=== PATIENT | female | born 1945 | race Caucasian/White ===

== ENCOUNTER 2017-05-28 05:28 | Day surgery (SDC) | payer MEDICARE, OTHER ==
[2017-05-27 11:53] LABS: HEMATOCRIT 42.5 % (36.0-48.0); HEMOGLOBIN 14.6 g/dL (12-16); MCH 27.8 pg (26.0-34.0); MCHC 34.4 g/dL (31.0-37.0); MCV 80.8 fL (80.0-100.0); MEAN PLATELET VOLUME 9.7 fL (7.4-10.4); RBC 5.26 10x6/uL (4.00-5.40); RDW 14.6 % (11.5-14.5)
[~2017-05-28] VITALS: Ht 160 cm; Wt 58.5 kg
--- NOTE | ~2017-05-28 | OP ---
PATIENT NAME: RAJIV BENJAMIN MEDICAL RECORD: [id number] :45 LOCATION:D.OPS ADMISSION DATE: SURGEON: VAN ORLANDO DPM DATE OF OPERATION: 05/28/2017 PREOPERATIVE DIAGNOSES: 1. Enlarged bone, right fourth interspace. 2. HAV, right foot. POSTOPERATIVE DIAGNOSES: 1. Enlarged bone, right fourth interspace. 2. HAV, right foot. PROCEDURES: 1. Right fifth arthroplasty. 2. Right fourth partial met head resection. 3. Right fourth partial base of the proximal phalanx resection. 4. Right Wero bunionectomy. 5. Right Michael. ANESTHESIA: Preoperative popliteal block per the anesthesia department as well as general anesthesia intraoperatively. HEMOSTASIS: Right thigh tourniquet at 350 mmHg. PREOPERATIVE DETAILS: The patient was taken to the OR and placed on the operating table in a supine position. This was followed by induction of general anesthesia. The right extremity was then prepped and draped in the usual aseptic technique followed by exsanguination and inflation of tourniquet. PROCEDURE NUMBER 1: Right fifth arthroplasty. A 15-blade was used to create a linear incision 1 cm over the dorsal aspect of the right fifth PIPJ. The incision was deepened down through subcutaneous tissue to the extensor longus tendon, which was transected and the head of the proximal phalanx was delivered. A bone cutter was used to resect the head of the proximal phalanx. A rongeur was used to smooth all corners. Wound was flushed. The extensor tendon was repaired with 4-0 Rapide. The skin was closed with 4-0 Rapide in a subcuticular technique followed by Dermabond. PROCEDURE NUMBER 2: Right fourth partial met head resection. A 15-blade was used to create a linear incision over the dorsal aspect of the right fourth MPJ. The incision was deepened down through subcutaneous tissue to the joint capsule. A linear capsulotomy was performed and the head of the fourth metatarsal was delivered. A sagittal saw was used to resect the lateral 2 or 3 mm of the metatarsal head. PROCEDURE NUMBER 3: Right fourth partial base proximal phalanx resection. The incision as described in #2 was lengthened on top of the base of the proximal phalanx and the sagittal saw was used to resect the lateral 2-3 mm of the base of the proximal phalanx. The wound was flushed. The capsule was repaired with 2-0 Vicryl with horizontal mattress technique. The subcutaneous tissue was reapproximated with 4-0 Rapide and the skin was closed with 4-0 Rapide in a subcuticular technique followed by Dermabond. PROCEDURE NUMBER 4: Right Wero bunionectomy. A 15-blade was used to create a OPERATIVE REPORT [id number] RAJIV BENJAMIN 5 cm linear incision over the dorsal aspect of the right first MPJ. The incision was deepened down through subcutaneous tissue to the first MPJ where an inverted L capsulotomy was performed. The medial capsular flap was reflected and the head of the first metatarsal was delivered. A sagittal saw was used to resect the medial eminence. Attention was directed to the first interspace where a lateral release was performed. Attention was then redirected to the medial aspect of the head of the first metatarsal where a sagittal saw was used to create a V-osteotomy through and through. The capital fragment was translocated laterally and fixated with a 0.062 inch K-wire. The medial redundant shelf was resected and the pin was cut. PROCEDURE NUMBER 5: Right Michael. The incision as described in #4 was lengthened to the middle of the proximal phalanx of the hallux. The capsule was reflected exposing the dorsal aspect of the base of the hallux as well as the medial aspect. A sagittal saw was then used to create a medial based wedge osteotomy closing down the wedge after the bone was removed to decrease the PASA angle. At this time, a 3.5 cannulated screw was placed for sift fixation under fluoroscopy. Excellent rigid internal fixation was noted as well as alignment. The wound was flushed. The joint capsule was then repaired with 2-0 Vicryl, the subcutaneous tissue with 4-0 Rapide, and the skin was closed with 4-0 Rapide in a subcuticular technique followed by Dermabond. Adaptic, 4 x 4 and Conform were used to dress all the wounds followed by Mickey. Tourniquet was deflated. POSTOPERATIVE DETAILS: The patient tolerated the procedures well and left the OR with vital signs stable and vascular status at preop levels. The patient was transported to recovery per anesthesia in stable condition. TRANSINT:[id number] Voice Confirmation ID: [id number] DOCUMENT ID: [id number] VAN ORLANDO DPM at 0905 CC: [id number] DICTATION DATE: 05/28/17829 [employer] W[employer] BACK TENDER: 05/28/17 1055 [facility] 05/28/17 [place] [id number] [facility] [place] [id number]
[~2017-05-28 05:28] MED LIST: ALTACE2.5 MG PO; CRESTOR10 MG PO; JANUMET 50-5001 TAB PO
[2017-05-28 06:13] VITALS: BP 139/78; Ht 160 cm; Wt 58.5 kg
== END 2017-05-28 10:30 | disposition home or self-care (01) ==
LOC: D.OPS 05:28 → D.PAN 07:00 → D.OPS 07:00
PROVIDERS: Anesthesiology
DX: M89.371 Hypertrophy of bone, right ankle and foot (principal); M20.11 Hallux valgus (acquired), right foot; Z01.812 Encounter for preprocedural laboratory examination